=== PATIENT | female | born 1995 | race Caucasian/White ===

== ENCOUNTER 2018-08-14 13:02 | Emergency (ER) | payer OTHER ==
--- NOTE | 2018-08-14 13:15 | EDPHY ---
H & P Stated Complaint: left leg pain Time Seen by Provider: 08/14/18 13:14 - Personal History LMP (Females 10-55): Now Current Tetanus/Diphtheria Vaccine: Yes Current Tetanus Diphtheria and Acellular Pertussis (TDAP): Yes - Medical/Surgical History Hx Asthma: No Hx Chronic Respiratory Disease: No Hx Diabetes: No Hx Cardiac Disease: No Hx Renal Disease: No Hx Cirrhosis: No Hx Alcoholism: No Hx HIV/AIDS: No Hx Splenectomy or Spleen Trauma: No Other PMH: diagnosed with clot in brain this past weekend. - Social History Smoking Status: Never smoked Constitutional: Initial Vital Signs Temperature (C) 36.6 C 08/14/18 13:08 Heart Rate 102 H 08/14/18 13:08 Respiratory Rate 18 08/14/18 13:08 Blood Pressure 137/85 H 08/14/18 13:08 O2 Sat (%) 96 08/14/18 13:08 O2 Delivery Mode Room Air Allergies/Adverse Reactions: No Known Allergies Allergy (Unverified 08/14/18 13:07) Home Medications: Medication Instructions Recorded Coumadin 08/14/18 Lovenox 08/14/18 Medical Decision Making - Diagnostics Imaging Results: Imaging Impressions Extremity Venous Study 08/14/18 13:22 Impression: No evidence of deep vein thrombosis. Findings discussed with Quan Simmons answering for Alvin Gibbs MD 08/14/2018 at 14:16. ED Course/Re-evaluation: CHIEF COMPLAINT: Leg pain HISTORY OF PRESENT ILLNESS: This patient is a 23 y/o female with recent diagnosis of central venous thrombosis (transverse sinus). This was diagnosed on Sunday by CT/MRI studies. She is currently anticoagulated on Lovenox and Coumadin. Today, she presents complaining of pain and numbness in her left leg. This began around her lower thigh and upper calf area and radiates up and down her leg laterally. These symptoms wax and wane. She has no pain, numbness, or weakness in her other extremities. She endorses history of DVTs and PEs in her father. She has already had a hypercoagulability panel completed as part of her workup last week. She denies chest pain, shortness of breath, headaches, lightheadedness, motor neurologic deficits, or other associated symptoms. REVIEW OF SYSTEMS: A comprehensive 10 system review of systems is otherwise negative aside from elements mentioned in the history of present illness and medical decision making. PHYSICAL EXAM: HR, BP, O2 Sat, RR. Temp noted General Appearance: Obese, alert, well hydrated, appropriate, and non-toxic appearing. Head: Atraumatic without scalp tenderness or obvious injury Eyes: Pupils equal, round, reactive to light and accommodation, EOMI, no trauma , no injection. Ears: Clear bilaterally, no perforation, normal landmarks Nose: Atraumatic, no rhinorrhea, clear. Throat: There is no erythema or exudates, no lesions, normal tonsils, mucus membranes moist. Neck: Supple, 2+ carotid upstroke, nontender, no lymphadenopathy. Respiratory: No retractions, no distress, no wheezes, and no accessory muscle use. Lungs are clear to auscultation bilaterally. Cardiovascular: Regular rate and rhythm, no murmurs, rubs, or gallops. Bilateral carotid, radial, dorsalis pedis, and posterior tibial pulses intact. Good capillary refill all extremities. Gastrointestinal: Abdomen is soft, nontender, non-distended, no masses, no rebound, no guarding, no peritoneal signs. Musculoskeletal: Normal active ROM of all extremities, atraumatic. Neurological: Alert, appropriate, and interactive. The patient has normal DTRs and non-focal cranial nerves, motor, sensory, and cerebellar exam. Skin: No rashes, good turgor, no nodules on palpation. Past medical history: Recent central venous thrombosis. Past surgical history: Noncontributory Family history: Possible family history of hypercoagulability disorder. Social history: Aunt at bedside. DIFFERENTIAL DIAGNOSIS: The differential diagnosis for the patient's leg pain included but was not limited to musculoskeletal pain, venous stasis, trauma, and DVT. MEDICAL DECISION MAKIN23 year old female with recent CVT diagnosis presents with left leg pain onset today. On exam, her leg appears normal. Same circumference as the right, no erythema, 2+ DP and PT. She notes that she has done yoga the past two days, and also has some low back pain. Presentation is more consistent with lateral nerve pain than a DVT. Plan for US or LLE to rule out DVT given patient's recent history of clot, family history, and possible hypercoagulability disorder. 14:[address] Sabillon, radiologist. US LLE is negative for DVT. 14:22 Reassessed patient. Discussed imaging results. She is relieved that there is no evidence of DVT at this time. She concurs that her pain is likely more musculoskeletal in nature and may be related to her recent yoga practice. Plan to discharge home in good condition. She will take acetaminophen for pain relief. Follow up and return precautions discussed. She is comfortable with this plan. Departure - Departure Disposition: Home, Routine, Self-Care Clinical Impression: Musculoskeletal pain of left lower extremity Condition: Good Instructions: Leg Pain (ED) Additional Instructions: Rest, elevation. You may take Tylenol, 650mg every 4-6 hours, as needed for discomfort. Return to the emergency department for worsening pain, swelling, numbness, weakness or other concerns. Follow up with your primary care providers as directed. Referrals: CHECO GALDAMEZ [Primary Care Provider] - As per Instructions Report Scribed for: Alvin Gibbs Report Scribed by: Rosibel Stein Date of Report: 08/14/18 Time of Report: 13:16
[2018-08-14 14:35] VITALS: BP 128/92
== END 2018-08-14 14:34 | disposition home or self-care (01) ==
DX: M79.605 Pain in left leg (principal); Z79.01 Long term (current) use of anticoagulants; Z86.718 Personal history of other venous thrombosis and embolism

== ENCOUNTER 2018-09-11 15:16 | Emergency (ER) | payer OTHER ==
[2018-09-11] MEDS ORDERED: NS 500 ML IV ONE ×2 (15:23→16:40)
[2018-09-11 15:52] LABS: PLATELET COUNT 448 10^3/uL (150-400)
[2018-09-11 16:01] LABS: INR 2.19 (0.83-1.16); PROTIME(PATIENT) 23.3 SEC (12.0-15.0)
--- NOTE | 2018-09-11 16:39 | EDPHY ---
H & P Time Seen by Provider: 09/11/18 15:23 HPI/ROS: HPI Dizziness. Better now. 23-year-old female by private vehicle with her friend. This patient has a history of cerebral DVT. She is currently on Coumadin. At approximately 2:20 p.m. She had sudden onset vertigo with associated lightheadedness. She stated that it felt like she could not walk straight and felt drunk. No history of head trauma or other traumatic event. She reports her symptoms have resolved now and she feels normal. No associated headache or neck pain. No nausea or vomiting. No confusion. ROS: Constitutional: No fever, no chills. As above. Eyes: No discharge. No changes in vision. ENT: No sore throat. No nasal congestion or rhinorrhea. Respiratory: No cough. No shortness of breath. Cardiac: No chest pain, no palpitations. Gastrointestinal: No abdominal pain, no vomiting, no diarrhea. Genitourinary: No hematuria. No dysuria or increased frequency with urination. Musculoskeletal: No back pain. No neck pain. No myalgias or arthralgias. Skin: No rashes. Neurological: No headache. No focal weakness or altered sensation. As above. Past medical history: She was diagnosed with cerebral DVT this past weekend at [facility]. As above. Social history: Nonsmoker. Physical Exam: General Appearance: Alert, no distress. This patient is responding to questions appropriately and in full sentences. This patient appears well- hydrated and well-nourished. Eyes: Pupils equal and round and reactive to light at 3-2 mm bilaterally, no pallor or injection. No lid edema, erythema or injection. No nystagmus. No photophobia. Respiratory: There are no retractions, lungs are clear to auscultation with good air movement bilaterally. Cardiovascular: Regular rate and rhythm. No murmur. Neurological: Motor sensory function is grossly intact. Cranial nerves are normal. Gait is normal. Cerebellar function intact. Skin: Warm and dry, no rashes. Musculoskeletal: Neck is supple and nontender. Extremities are symmetrical. All joints range without pain or impingement. Psychiatric: No agitation. No depression. Database: EKG: EKG time is 3:49 p.m.; EKG shows a narrow complex tachycardia with ventricular rate of 104. The MI, QRS, QT intervals are within normal limits. There are no ST-T wave changes indicative of ischemic or injury pattern. No evidence of right heart strain. Interpreted by me. Imaging: MRI brain without contrast and MR venogram: Right transverse sinus is still thrombosed. Otherwise this study is normal. No evidence of hemorrhage or ischemic injury. Results were discussed with staff radiologist Dr. Vince Gage. Procedures: Emergency department course: Triage vital signs reviewed. She is mildly tachycardic. Vital signs are otherwise normal. IV was placed. She was started on IV normal saline with 500 cc to be given over the next hour. MR venogram an MRI of brain without contrast to be obtained for neuro imaging. Patient consents to workup. 4:40 p.m., the patient was re-evaluated, repeat neurologic Assessment is nonfocal. She denies any symptoms at this time. She was sent for MRIs. 6:00 p.m., the patient was re-evaluated, resting comfortably. Repeat neurologic Assessment is nonfocal. Results of her emergency department workup and imaging discussed with her and her aunt was present in the room with her. She currently does live down in [place]. She works here in [place]. Her care is in [place]. She feels comfortable going home at this time and I feel she is safe for discharge. She states that she has been under an unusual amount of stress lately and states that she has been feeling anxious. Follow-up and return to emergency department precautions discussed with her and her aunt. All of their questions were answered. The patient was discharged in good condition with her aunt. Differential Diagnosis: The differential diagnosis on this patient includes but is not limited to transient peripheral vertigo, anxiety reaction. Intracranial hemorrhage, acute CVA, vertebral artery dissection, carotid artery dissection unlikely. This represents a partial list of diagnoses considered. These considerations are based on history, physical exam, past history, reassessment and diagnostic testing. Smoking Status: Never smoked Constitutional: Initial Vital Signs Temperature (C) 36.8 C 09/11/18 15:27 Heart Rate 105 H 09/11/18 15:27 Respiratory Rate 18 09/11/18 15:27 Blood Pressure 134/79 H 09/11/18 15:27 O2 Sat (%) 99 09/11/18 15:27 O2 Delivery Mode Room Air Allergies/Adverse Reactions: No Known Allergies Allergy (Unverified 08/14/18 13:07) Home Medications: Medication Instructions Recorded Coumadin 08/14/18 Lovenox 08/14/18 Medical Decision Making - Diagnostics Imaging Results: Imaging Impressions Brain MRI 09/11/18 15:24 Impression: 1. 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 2. Patent superior sagittal sinus. 3. No acute infarct, acute hemorrhage, hydrocephalus, or mass effect. 4. No sinusitis. 5. Recommend obtaining prior studies for comparison. Findings and recommendations discussed with Emergency Department physician, Charla De Jesus M.D., at 1740 hours, on September 11, 2018. Final report concurs with initial preliminary interpretation. Head MRA 09/11/18 15:25 Impression: 1. 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 2. Patent superior sagittal sinus. 3. Patent left transverse and sigmoid sinuses. Findings and recommendations discussed with Emergency Department physician, Charla De Jesus M.D., at 1736 hours, on September 11, 2018. Final report concurs with initial preliminary interpretation. - Data Points Laboratory Results: Laboratory Results 09/11/18 15:38 09/11/18 15:38 09/11/18 09/11/18 09/11/18 15:38 15:38 15:38 WBC 9.66 10^3/uL H 10^3/uL (3.80-9.50) RBC 5.41 10^6/uL H 10^6/uL (4.18-5.33) Hgb 11.5 g/dL L g/dL (12.6-16.3) Hct 39.4 % % (38.0-47.0) MCV 72.8 fL L fL (81.5-99.8) MCH 21.3 pg L pg (27.9-34.1) MCHC 29.2 g/dL L g/dL (32.4-36.7) RDW 20.9 % H % (11.5-15.2) Plt Count 448 10^3/uL H 10^3/uL (150-400) MPV 11.0 fL fL (8.7-11.7) Neut % (Auto) 68.7 % % (39.3-74.2) Lymph % (Auto) 23.1 % % (15.0-45.0) Power % (Auto) 6.8 % % (4.5-13.0) Eos % (Auto) 0.7 % % (0.6-7.6) Baso % (Auto) 0.4 % % (0.3-1.7) Nucleat RBC Rel Count 0.0 % % (0.0-0.2) Absolute Neuts (auto) 6.63 10^3/uL H 10^3/uL (1.70-6.50) Absolute Lymphs (auto) 2.23 10^3/uL 10^3/uL (1.00-3.00) Absolute Monos (auto) 0.66 10^3/uL 10^3/uL (0.30-0.80) Absolute Eos (auto) 0.07 10^3/uL 10^3/uL (0.03-0.40) Absolute Basos (auto) 0.04 10^3/uL 10^3/uL (0.02-0.10) Absolute Nucleated RBC 0.00 10^3/uL 10^3/uL (0-0.01) Immature Gran % 0.3 % % (0.0-1.1) Immature Gran # 0.03 10^3/uL 10^3/uL (0.00-0.10) PT 23.3 SEC H SEC (12.0-15.0) INR 2.19 H (0.83-1.16) Sodium 138 mEq/L mEq/L (135-145) Potassium 3.7 mEq/L mEq/L (3.5-5.2) Chloride 107 mEq/L mEq/L (97-110) Carbon Dioxide 20 mEq/l L mEq/l (22-31) Anion Gap 11 mEq/L mEq/L (6-14) BUN 8 mg/dL mg/dL (7-23) Creatinine 0.5 mg/dL L mg/dL (0.6-1.0) Estimated GFR > 60 Glucose 95 mg/dL mg/dL (70-100) Calcium 9.3 mg/dL mg/dL (8.5-10.4) Medications Given: Discontinued Medications Sodium Chloride (Ns) 500 mls @ 0 mls/hr IV ONCE ONE; Wide Open PRN Reason: Protocol Stop: 09/11/18 15:24 Last Admin: 09/11/18 15:38 Dose: 500 mls Sodium Chloride (Ns) 500 mls @ 0 mls/hr IV EDNOW ONE; Wide Open PRN Reason: Protocol Stop: 09/11/18 16:41 Last Admin: 09/11/18 17:26 Dose: 500 mls Departure - Departure Disposition: Home, Routine, Self-Care Clinical Impression: Vertigo, Anxiety, Cerebral vein thrombosis Condition: Good Instructions: Vertigo (ED), Anxiety (ED) Additional Instructions: Read and follow provided instructions. Follow-up with your primary care physician in 1-2 days for re-evaluation. Continue taking Coumadin as prescribed. Return to the emergency department for return of vertigo, any loss of sensation or weakness in your extremities, changes in vision, headache, vomiting, confusion or other serious concerns. Referrals: CHECO GALDAMEZ [Primary Care Provider] - As per Instructions
[2018-09-11 18:19] VITALS: BP 136/92
--- NOTE | 2018-09-12 22:40 | CPEKG ---
Test Reason : OPEN Blood Pressure : / mmHG Vent. Rate : 104 BPM Atrial Rate : 104 BPM P-R Int : 127 ms QRS Dur : 093 ms QT Int : 354 ms P-R-T Axes : 041 045 013 degrees QTc Int : 466 ms Sinus tachycardia Confirmed by Charla De Jesus ([id number]) on 09/12/2018 10:39:37 PM Referred By: Charla De Jesus Confirmed By:Charla De Jesus
== END 2018-09-11 18:16 | disposition home or self-care (01) ==
DX: I67.6 Nonpyogenic thrombosis of intracranial venous system (principal); F41.9 Anxiety disorder, unspecified; Z79.01 Long term (current) use of anticoagulants

== ENCOUNTER 2018-09-13 14:59 | Emergency (ER) | payer OTHER ==
--- NOTE | 2018-09-13 15:54 | EDPHY ---
H & P Stated Complaint: clot transverse sinus vein/increasing episodes of dizzyness/n/ v since Time Seen by Provider: 09/13/18 15:16 HPI/ROS: CHIEF COMPLAINT: Resolved vertigo HISTORY OF PRESENT ILLNESS: The patient presents the emergency department after an episode of resolved vertigo. The patient was diagnosed with a central vein thrombosis in July of this year. She has been anticoagulated since that time. The patient had a similar episode of vertigo 2 days ago which lasted an hour. She was seen in the emergency department at that point time and underwent an MRI of the brain which demonstrated no evidence of a acute intracranial hemorrhage. It did demonstrate a stable clot and demonstrated no evidence of edema. The patient had a recurrent episode of vertigo today which lasted 2 hr. She had no severe headache, numbness or weakness with it. The patient continues to be anticoagulated. The patient denies any additional acute complaints. She feels back at baseline. REVIEW OF SYSTEMS: A comprehensive 10 point review of systems is otherwise negative aside from elements mentioned in the history of present illness. Source: Patient Exam Limitations: No limitations - Personal History LMP (Females 10-55): Now Current Tetanus Diphtheria and Acellular Pertussis (TDAP): Yes - Medical/Surgical History Hx Asthma: No Hx Chronic Respiratory Disease: No Hx Diabetes: No Hx Cardiac Disease: No Hx Renal Disease: No Hx Cirrhosis: No Hx Alcoholism: No Hx HIV/AIDS: No Hx Splenectomy or Spleen Trauma: No Other PMH: diagnosed with clot in brain in July 2018 - Social History Smoking Status: Never smoked Alcohol Use: None - Physical Exam Exam: General Appearance: Alert, no distress Eyes: Pupils equal and round no pallor or injection ENT, Mouth: Mucous membranes moist Respiratory: There are no retractions, lungs are clear to auscultation Cardiovascular: Regular rate and rhythm Gastrointestinal: Abdomen is soft and nontender, no masses, bowel sounds normal Neurological: A&O, normal motor function, normal sensory exam, normal cranial nerves Skin: Warm and dry, no rashes Musculoskeletal: Neck is supple nontender Extremities: symmetrical, full range of motion Psychiatric: Patient is oriented X 3, there is no agitation Constitutional: Initial Vital Signs Temperature (C) 36.8 C 09/13/18 15:03 Heart Rate 95 09/13/18 15:03 Respiratory Rate 17 09/13/18 15:03 Blood Pressure 139/85 H 09/13/18 15:03 O2 Sat (%) 99 09/13/18 15:03 O2 Delivery Mode Room Air Allergies/Adverse Reactions: No Known Allergies Allergy (Verified 09/13/18 15:01) Home Medications: Medication Instructions Recorded Coumadin 08/14/18 Meclizine HCl [Meclizine HCl 25 mg 25 mg PO BID PRN #20 tab 09/13/18 (RX,OTC)] Ondansetron Odt [Zofran Odt] 4 mg PO Q4PRN PRN #20 tab 09/13/18 Medical Decision Making ED Course/Re-evaluation: I reviewed the results of the patient's recent MRI test. The patient arrives and is neurologically intact. She has no complaints of an acute headache. Her INR is therapeutic. The patient will be discharged from the emergency department at this point time. She will be given a prescription for meclizine and Zofran. The patient will follow up with Neurology at [facility]. The patient is advised to return to the ED for severe headache, difficulty with speech, vision loss, numbness or weakness. Departure - Departure Disposition: Home, Routine, Self-Care Clinical Impression: Vertigo Condition: Good Instructions: Vertigo (ED) Additional Instructions: 1. Meclizine as needed for vertigo. Zofran as needed for nausea. 2. Return to the ED for severe headache, numbness or weakness on 1 side of the body relative to the other, visual loss, difficulty with speech or other concerns. 3. Please follow up with Neurology. You have been given the number of our local neurologist who would be happy to see you in follow-up. Referrals: NEREIDA ANTHONY [Other] - As per Instructions Francis Jhaveri MD [Medical Doctor] - As per Instructions Prescriptions: Meclizine HCl [Meclizine HCl 25 mg (RX,OTC)] 25 mg PO BID PRN #20 tab PRN Reason: for dizzyness Ondansetron Odt [Zofran Odt] 4 mg PO Q4PRN PRN #20 tab PRN Reason: For Nausea
[2018-09-13 16:13] VITALS: BP 128/96
== END 2018-09-13 16:15 | disposition home or self-care (01) ==
DX: R42 Dizziness and giddiness (principal); Z79.01 Long term (current) use of anticoagulants